=== PATIENT | female | born 1955 | race Caucasian/White ===

== ENCOUNTER 2020-02-07 09:13 | Emergency (ER) | payer MEDICARE ==
[~2020-02-07] VITALS: Ht 162.6 cm; Wt 98.4 kg
[2020-02-07] MEDS ORDERED: LEVO75TA5 PO (09:40)
[2020-02-07] MEDS ORDERED: PANT20TA3 PO (09:41)
[2020-02-07] MEDS ORDERED: BUPR150T73 PO (09:42)
[2020-02-07] MEDS ORDERED: NAPR-685 PO (09:43)
[2020-02-07] MEDS ORDERED: CIPR500T3 PO (09:43)
--- NOTE | 2020-02-07 10:36 | NUR ---
Pt has no complaints. UA sent to lab. Pt to CT.
[2020-02-07 10:38] LABS: BASOPHILS # (AUTO) 0.01 x10^3/uL (0-0.1); BASOPHILS % (AUTO) 0 % (0-1); EOSINOPHILS # (AUTO) 0.06 x10^3/uL (0-0.4); EOSINOPHILS % (AUTO) 1 % (1-7); LYMPHOCYTES # (AUTO) 1.45 x10^3/uL (1-3.4); LYMPHOCYTES % (AUTO) 26 % (22-44); MD NO; MEAN CORPUSCULAR HEMOGLOBIN 31.3 pg (27.0-34.8); MEAN CORPUSCULAR HGB CONC 33.3 g/dL (32.4-35.8); MEAN CORPUSCULAR VOLUME 93.8 fL (80-100); MEAN PLATELET VOLUME 8.7 fL (7.4-10.4); MONOCYTES % (AUTO) 7 % (2-9); NEUTROPHILS # (AUTO) 3.76 x10^3/uL (1.8-6.8); NEUTROPHILS % (AUTO) 66 % (42-75); PLATELET COUNT 250 x10^3/uL (130-400); RED BLOOD COUNT 5.32 x10^6/uL (3.82-5.3); RED CELL DISTRIBUTION WIDTH 12.9 % (9.6-15.2)
[2020-02-07 10:41] LABS: ALANINE AMINOTRANSFERASE 107 U/L (12-78); ALBUMIN 3.8 g/dL (3.4-5.0); ANION GAP 6 mmol/L (5-15); CALCIUM 8.9 mg/dL (8.5-10.1); CHLORIDE 107 mmol/L (98-107)
[2020-02-07 10:44] LABS: ALKALINE PHOSPHATASE 97 U/L (45-117); BILIRUBIN,TOTAL 0.5 mg/dL (0.2-1.0); TOTAL PROTEIN 7.4 g/dL (6.4-8.2)
[2020-02-07 11:01] LABS: MICROSCOPIC INDICATED
[2020-02-07] MEDS ORDERED: HYDROcodone/APAP 5/325 TABLET ONE (11:15)
--- NOTE | 2020-02-07 11:19 | NUR ---
Pt medicates for pain, VS updated. Pt has no other needs at this time.
--- NOTE | 2020-02-07 11:29 | NUR ---
Pt refusinh Toradol at this time, provided with Ravenel
[2020-02-07] MEDS ORDERED: KETOROLAC 30 MG/1 ML IM ONE (11:30)
[2020-02-07] MEDS ORDERED: HYDROcodone/APAP 5/325 TABLET PO ONE (11:30)
[2020-02-07] MEDS ORDERED: CEFTRIAXONE 1,000 MG IM ONE (12:00)
[2020-02-07] MEDS ORDERED: CEFTRIAXONE 1,000 MG ONE (12:03)
[2020-02-07 12:26] VITALS: BP 165/71
== END 2020-02-07 12:39 | disposition home or self-care (01) ==
LOC: ED 10:17
DX: N10 Acute pyelonephritis (principal); N39.0 Urinary tract infection, site not specified; N26.1 Atrophy of kidney (terminal)
CPT/HCPCS: 36415; 74176; 80053; 81001; 83690; 85025; 87077; 87086; 96372; 99284; J0696; 87186